=== PATIENT | male | born 1965 | race Caucasian/White ===

== ENCOUNTER 2022-03-21 10:50 | Outpatient (CLI) | payer BC, SELFPAY ==
--- NOTE | ~2022-03-21 | US_ITS ---
EXAMINATION: US carotid duplex BI DATE: 03/21/2022 11:40 INDICATION: Other specified symptoms and signs involving the circulatory system. TECHNIQUE: Grayscale, color Doppler, and pulsed Doppler images of the cervical carotid arteries were obtained. The degree of vessel stenosis is placed in one of the following categories: normal, <50%, 5 0-69%, >=70% but less than near-occlusion, near-occlusion, or total occlusion. Note that percent sten osis relative to normal distal artery lumen diameter is indirectly measured from velocity measurement s as described by Myke, et al. Radiology 2003; [id number]. COMPARISON: None. FINDINGS: RIGHT: The right common carotid artery (CCA) peak systolic velocity (PSV) is 111 cm/s. The right internal ca rotid artery (ICA) PSV is 85 cm/s. The right ICA end-diastolic velocity (EDV) is 23 cm/s. The right I CA/CCA PSV ratio is 0.8. Grayscale and color Doppler images yield an estimate of <50% diameter reduct ion from plaque in the ICA. There is antegrade flow in the right vertebral artery. LEFT: The left CCA PSV is 157 cm/s. The left ICA PSV is 85 cm/s. The left ICA EDV is 19 cm/s. The left ICA/ CCA PSV ratio is 0.5. Grayscale and color Doppler images yield an estimate of <50% diameter reduction from plaque in the ICA. There is antegrade flow in the left vertebral artery. IMPRESSION: 1. <50% stenosis in the right internal carotid artery. 2. <50% stenosis in the left internal carotid artery. Reviewed, dictated and finalized at location A.
--- NOTE | ~2022-03-21 | XR_ITS ---
EXAMINATION: XR chest 2V 03/21/2022 11:15 INDICATION: Hypertension. PROCEDURE: 2 view chest COMPARISON: 06/25/2006 FINDINGS: The lungs are clear. The cardiomediastinal silhouette is within normal limits. There are no pleural effusions. There is no pneumothorax suspected. IMPRESSION: 1: NO ACUTE CARDIOPULMONARY DISEASE. Reviewed, dictated and finalized at location A.
== END 2022-03-21 10:51 | disposition home or self-care (01) ==
PROVIDERS: PCP Family Medicine; Visit Provider Family Medicine
DX: R09.89 Other specified symptoms and signs involving the circulatory and respiratory systems (principal); I65.23 Occlusion and stenosis of bilateral carotid arteries
CPT/HCPCS: 71046; 93880

== ENCOUNTER 2024-04-25 13:41 | Outpatient (CLI) | payer BC, OTHER, SELFPAY ==
--- NOTE | ~2024-04-25 | XR_ITS ---
XR chest 2V Ordering provider: Etienne Ordoñez MD History: 59 years Male with . J40 - Bronchitis, not specified as acute or chronic, SMOKER . Comparison: None. FINDINGS: MEDIASTINUM: The cardiac silhouette is not enlarged. LUNGS: No infiltrates, effusions or pneumothorax. Emphysematous changes of the lungs. OTHER: No free air under the diaphragm. IMPRESSION: No acute cardiopulmonary pathology Reviewed, dictated and finalized at location A.
--- NOTE | 2024-04-25 14:09 | ECG_ITS ---
Test Date: 2024-04-25 14:23:01 Measurements Intervals [place] Rate: P: MD: QRS: QRSD: T: QT: QTc: Interpretive Statements SINUS RHYTHM WITH FIRST DEGREE AV BLOCK BORDERLINE ECG Electronically Signed On 04-25-2024 14:53:01 CDT by Bautista Barcenas D.O.
[2024-04-25 14:26] LABS: Basophils Absolute Auto 0.1 K/mm3 (0.0-0.1); Basophils Percent Auto 0.6 % (0.2-1.2); Eosinophils Absolute Auto 0.2 K/mm3 (0-0.3); Eosinophils Percent Auto 2.2 % (0-4.4); Hematocrit 41.1 % (42.0-52.0); Hemoglobin 14.8 g/dL (14.0-18.0); Immature Granulocyte Absolute 0.03 K/mm3 (0.00-0.031); Immature Granulocyte Percent A 0.4 % (0-0.5); Lymphocytes Absolute Auto 1.64 K/mm3 (0.9-3.2); Mean Corpuscular Volume 91.5 fl (80-100); Mean Platelet Volume 10.1 fl (7.4-10.4); Monocytes Absolute Auto 0.9 K/mm3 (0.1-0.6); Monocytes Percent Auto 11.2 % (2.6-8.5); Neutrophils Absolute Auto 5.4 K/mm3 (1.3-6.7); Neutrophils Percent Auto 65.6 % (45.5-73.1); Platelet Count Result 194 k/mm3 (150-375); Red Blood Count 4.49 M/mm3 (4.6-6.20); Red Cell Distribution Width 11.2 % (11.5-14.5); White Blood Count 8.2 K/mm3 (4.5-10.0)
[2024-04-25 14:57] LABS: Anion Gap 9 mmol/L (4-12); Blood Urea Nitrogen 10 mg/dL (9-20); Calcium 9.2 mg/dL (8.4-10.2); Carbon Dioxide 28 mmol/L (22-30); Chloride 83 mmol/L (98-107); Estimated Glomerular Filt Rate > 60; Glucose 98 mg/dL (65-110); Potassium 3.5 mmol/L (3.4-5.0); Sodium 120 mmol/L (137-145)
== END 2024-04-25 13:42 | disposition home or self-care (01) ==
PROVIDERS: PCP Family Medicine; Visit Provider Family Medicine
DX: J40 Bronchitis, not specified as acute or chronic (principal); R06.2 Wheezing; R06.00 Dyspnea, unspecified; I10 Essential (primary) hypertension; I44.0 Atrioventricular block, first degree
CPT/HCPCS: 36415; 71046; 80048; 85025; 93005

== ENCOUNTER 2024-04-25 15:07 | Inpatient (IN) | payer BC, OTHER, SELFPAY ==
[2024-04-25] VITALS (10 sets, daily range): BP systolic 118–136; BP diastolic 68–101; PULSE 64–88; RESP 14–20; TEMP 36.4–37.1; O2SAT 92–97; BMI 31.9
--- NOTE | 2024-04-25 15:13 | ED.RECABL ---
HPI - Recheck/Abnormal Lab/Rx General Chief Complaint: Recheck/Abnormal Lab/Rx <Litzy Wu PA-C - Last Filed: 04/25/24 19:18> Stated Complaint: LOW SODIUM LEVEL <Litzy Wu PA-C - Last Filed: 04/25/24 19:18> Time Seen by Provider: 04/25/24 15:13 <Litzy Wu PA-C - Last Filed: 04/25/24 19:18> Focused HPI: This is a 59-year-old male that presents to the emergency department for abnormal outpatient blood work. He had a low sodium. Patient does report he is a daily drinker. No previous history of hyponatremia that he knows of. GENERAL: Well-appearing, well-nourished, and in no acute distress. HEAD: Normocephalic, atraumatic. CHEST: Clear to auscultation. ?No respiratory distress. HEART: Regular rate and rhythm.? NEURO: ?Alert and oriented x3. Patient screened in triage and initial orders placed.? ?Additional care and disposition to be based upon?diagnostic testing and treatment. <Litzy Wu PA-C - Last Filed: 04/25/24 19:18> History of Present Illness HPI narrative: Patient is 59-year-old gentleman presents emergency department with chief complaint of hyponatremia. Patient was being seen by his primary care provider for possible bronchitis and also reports that he has not been feeling well patient does report that he drinks about a pt to a 5th a day of alcohol the patient states that patient had outpatient labs which showed that his sodium was 120. <Darion Holt MD - Last Filed: 04/25/24 16:16> Related Data Allergies/Adverse Reactions: Allergies Allergy/AdvReac Type Severity Reaction Status Date / Time No Known Allergies Allergy Verified 04/25/24 12:38 <Litzy Wu PA-C - Last Filed: 04/25/24 19:18> Review of Systems Review of Systems: A 10 system review of systems was completed on the patient and is negative except for what is stated in the HPI. Nursing and ancillary documentation was reviewed. <Darion Holt MD - Last Filed: 04/25/24 16:16> PMFSH Past Medical History Medical History: Medical History Abnormal lung sounds Bilateral impacted cerumen Bronchitis Class 1 obesity with body mass index (BMI) of 33.0 to 33.9 in adult Dyspnea Hyponatremia Right carotid bruit Screening for lipoid disorders Screening for prostate cancer Tobacco abuse Wheezing <Litzy Wu PA-C - Last Filed: 04/25/24 19:18> Family History Family History: Family History Mother Hypertension Cerebrovascular accident Family history of coronary artery disease Family history of throat cancer Grandparent Cerebrovascular accident Father Family history of primary malignant neoplasm of liver Sibling Family history of malignant neoplasm of brain Cancer Cerebrovascular accident Sibling No problems noted. <Litzy Wu PA-C - Last Filed: 04/25/24 19:18> Social History Social History: Social History Smoking packs per day: 1 Smoking cigarettes per day: 20.0 Years smoked: 40 Smoking pack-years: 40.00 Smoking status: Current every day smoker Tobacco type: cigarettes Second hand tobacco smoke exposure: Yes Additional smoking assessment comments: Patient states he has cut back to half a pack a day. Alcohol intake: current Drinks per week: 20 Substance use: never Substance use type: does not use Do You Feel Safe in your Home?: Yes Lack of Transportation: No Lack of Food: Never True Current Housing: I Have Housing Concerned About Future Housing: No Difficulty Paying Gas/Electric Bills: No Difficulty Paying for Meds: No Currently Unemployed: No Education: High School Diploma/GED Difficulty w/ Childcare or Family Care: No Living arrangements: with family Occu
[2024-04-25 16:15] LABS: Basophils Percent Auto 0.6 % (0.2-1.2); Eosinophils Absolute Auto 0.1 K/mm3 (0-0.3); Eosinophils Percent Auto 1.5 % (0-4.4); Hematocrit 42.2 % (42.0-52.0); Hemoglobin 15.8 g/dL (14.0-18.0); Immature Granulocyte Absolute 0.03 K/mm3 (0.00-0.031); Immature Granulocyte Percent A 0.4 % (0-0.5); Lymphocytes Absolute Auto 0.84 K/mm3 (0.9-3.2); Lymphocytes Percent Auto 11.8 % (18.3-44.2); Mean Corpuscular HGB Conc 37.4 g/dl (32-36); Mean Corpuscular Hemoglobin 33.8 pg (26-34); Mean Corpuscular Volume 90.4 fl (80-100); Mean Platelet Volume 9.5 fl (7.4-10.4); Monocytes Absolute Auto 0.4 K/mm3 (0.1-0.6); Monocytes Percent Auto 5.8 % (2.6-8.5); Neutrophils Absolute Auto 5.7 K/mm3 (1.3-6.7); Neutrophils Percent Auto 79.9 % (45.5-73.1); Platelet Count Result 176 k/mm3 (150-375); Red Blood Count 4.67 M/mm3 (4.6-6.20); Red Cell Distribution Width 11.3 % (11.5-14.5); White Blood Count 7.1 K/mm3 (4.5-10.0)
[2024-04-25] MEDS: SODIUM CHLORIDE 0.9% IV 1,000 ML 999 ML IV CONT (16:19)
[2024-04-25 16:27] LABS: Lactic Acid Reflex 0.8 mmol/L (0.7-2.0)
[2024-04-25 16:30] LABS: Alanine Aminotransferase 92 U/L (6-50); Albumin Level 4.6 g/dL (3.5-5.1); Alkaline Phosphatase 59 U/L (38-126); Anion Gap 9 mmol/L (4-12); Aspartate Amino Transferase 58 U/L (17-59); Bilirubin,Total 0.9 mg/dL (0.2-1.3); Blood Urea Nitrogen 10 mg/dL (9-20); Calcium 9.2 mg/dL (8.4-10.2); Carbon Dioxide 26 mmol/L (22-30); Chloride 81 mmol/L (98-107); Estimated CRCL calculation 169 ml/min; Estimated Glomerular Filt Rate > 60; Glucose 103 mg/dL (65-110); Magnesium 1.7 mg/dL (1.6-2.3); Potassium 3.6 mmol/L (3.4-5.0); Sodium 116 mmol/L (137-145)
[2024-04-25 16:39] LABS: NT Pro B Type Natriuretic Pept 135 pg/mL (19.9-100); Troponin I < 0.012 ng/mL (0.000-0.034)
[2024-04-25 16:43] LABS: Influenza A QL RT-PCR Negative (Negative); Influenza B QL RT-PCR Negative (Negative); RSV RNA, RT-PCR Negative (Negative); SARS-CoV-2 RNA PCR Negative (Negative)
[2024-04-25 16:59] LABS: Procalcitonin 0.1 ng/mL
[2024-04-25] MEDS: THIAMINE 500 MG/NS 100 ML 500 MG/100 ML BAG 200 MG IVPB (17:03)
[2024-04-25 17:27] LABS: Add Urine Microscopic? NO; Appearance Urine Clear (Clear); Bilirubin Urine Negative (Negative); Blood Urine Negative (Negative); Color Urine Yellow (Yellow); Glucose Urine UA Negative (Negative); Ketones Urine Negative (Negative); Leukocyte Esterase Ur Negative LEU/UL (Negative); Nitrate Urine Negative (Negative); Protein Urine Negative (Negative); Specific Grav Ur 1.008 (1.001-1.035)
--- NOTE | 2024-04-25 17:30 | PM.IMHP ---
H&P: HPI History of Present Illness Date/Time: 04/25/24 17:30 Chief Complaint: Low sodium. Narrative: This is a 59-year-old male smoker with hypertension, hyperlipidemia, and alcohol abuse who presented to the emergency department from Dr. Ordoñez's office for evaluation after he was found to have a sodium of 120. The patient provides the following history. He has not been feeling well for over a week with symptoms to include fatigue, generalized weakness, sinus congestion, and increasing shortness of breath with exertion. He took an at home COVID test on Thursday which was negative. He had a scheduled, routine appointment Dr. Ordoñez today who ordered a chest x-ray and some labs given his symptoms. To the patient's knowledge, he has never had low sodium. He has been on hydrochlorothiazide for quite some time. He says he has been eating and drinking okay but then he goes on to say that he feels parched and he has noticed a slight decrease in urine output. He denies fever, confusion, nausea, vomiting, diarrhea, and swelling. He drinks about 1.5 pt of alcohol a day after he gets off of work. He has never had signs or symptoms of alcohol withdrawal. In the ED: He was afebrile on arrival with stable vital signs. Labs are significant for a sodium of 120, chloride 83, BUN 10, creatinine 0.50, ALT 92, proBNP 135. Urinalysis was unremarkable. He tested negative for influenza, RSV, and COVID. Outpatient chest x-ray showed no acute cardiopulmonary disease. He was given a L of normal saline and is being admitted in this setting for further treatment and evaluation. Review of Systems Review of Systems: 12 systems were reviewed and are negative except for as per HPI. [facility] Past Medical History Medical History (Updated 04/25/24 @ 21:41 by Michelle Nguyen PA-C) Alcohol abuse Hyperlipidemia Hypertension Right carotid bruit Less than 50% stenosis in bilateral internal carotid arteries on Doppler taken 03/21/2022. Tobacco abuse Surgical History Surgical History History of appendectomy Family History Family History Mother Hypertension Cerebrovascular accident Family history of coronary artery disease Family history of throat cancer Grandparent Cerebrovascular accident Father Family history of primary malignant neoplasm of liver Sibling Family history of malignant neoplasm of brain Cancer Cerebrovascular accident Sibling No problems noted. Social History Social History (Updated 04/25/24 @ 21:42 by Michelle Nguyen PA-C) Social History: Surrogate medical decision maker: Maribell Mendez, spouse. Code status: Full code. Smoking packs per day: 1 Smoking cigarettes per day: 20.0 Years smoked: 40 Smoking pack-years: 40.00 Smoking status: Current every day smoker Tobacco type: cigarettes Second hand tobacco smoke exposure: Yes Additional smoking assessment comments: Patient states he has cut back to half a pack a day. Alcohol intake: current Drinks per week: 21 Alcohol use details: 1.5 pt of alcohol a day Substance use: never Substance use type: does not use Do You Feel Safe in your Home?: Yes Lack of Transportation: No Lack of Food: Never True Current Housing: I Have Housing Concerned About Future Housing: No Difficulty Paying Gas/Electric Bills: No Difficulty Paying for Meds: No Currently Unemployed: No Education: Bachelor's Degree Difficulty w/ Childcare or Family Care: No Living arrangements: with family Additional living arrangements comments: Lives with and son in [place]. 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
[2024-04-25 17:41] LABS: Creatinine Urine 40.1 mg/dL; Urea Random Urine 372 MG/DL
[2024-04-25 17:42] LABS: Sodium Urine Random 67 meq/L
--- NOTE | 2024-04-25 18:47 | ADMGEN ---
This patient, Mike Mendez, was admitted to IMU Room 232-01. Patient/family oriented to hospital policies and general routines including ID bracelet, bed and alarms, visiting hours, pain management, procedures, bathroom and other care routines, personal items, smoking policy, room service/diet, and visiting hours. Information on how to activate the Rapid Response Team has been discussed. Patient/Family are encouraged to report perceived risks to care and to ask questions if they do not understand what they are told or what they should do.
[2024-04-25 20:56] LABS: Sodium 122 mmol/L (137-145)
[2024-04-25] MEDS: SODIUM CHLORIDE 0.9% IV 500 ML 100 ML IV CONT (22:22)
[2024-04-25] MEDS: carvediloL 25 MG TABLET BY MOUTH (22:22)
[2024-04-25] MEDS: cloNIDine HCL 0.1 MG TABLET BY MOUTH (22:22)
[2024-04-26] VITALS (24 sets, daily range): BP systolic 113–129; BP diastolic 54–74; PULSE 63–82; RESP 16–22; TEMP 36.3–36.6; O2SAT 91–98
[2024-04-26 00:39] LABS: Sodium 122 mmol/L (137-145)
[2024-04-26] MEDS: IPRATROPIUM 0.5 MG/ALBUTEROL SULFATE 2.5 MG AMPUL.NEB 3 ML INHALATION ×4 (03:06→20:02)
[2024-04-26 04:57] LABS: Hematocrit 42.3 % (42.0-52.0); Hemoglobin 15.5 g/dL (14.0-18.0); Mean Corpuscular HGB Conc 36.6 g/dl (32-36); Mean Corpuscular Hemoglobin 33.5 pg (26-34); Mean Corpuscular Volume 91.6 fl (80-100); Mean Platelet Volume 10.1 fl (7.4-10.4); Platelet Count Result 186 k/mm3 (150-375); Red Blood Count 4.62 M/mm3 (4.6-6.20); Red Cell Distribution Width 11.3 % (11.5-14.5); White Blood Count 8.6 K/mm3 (4.5-10.0)
[2024-04-26 05:10] LABS: Sodium 123 mmol/L (137-145)
[2024-04-26 05:15] LABS: Anion Gap 10 mmol/L (4-12); Blood Urea Nitrogen 6 mg/dL (9-20); Calcium 9.1 mg/dL (8.4-10.2); Carbon Dioxide 23 mmol/L (22-30); Chloride 89 mmol/L (98-107); Estimated CRCL calculation 201 ml/min; Estimated Glomerular Filt Rate > 60; Glucose 117 mg/dL (65-110); Magnesium 1.8 mg/dL (1.6-2.3); Potassium 3.7 mmol/L (3.4-5.0); Sodium 122 mmol/L (137-145)
[2024-04-26] MEDS: FLUTICASONE/UMECLIDIN/VILANTER 100-62.5-25 MCG ELLIPTA 1 PUFF INHALATION (08:13)
[2024-04-26] MEDS: carvediloL 25 MG TABLET BY MOUTH ×2 (08:48→20:40)
[2024-04-26] MEDS: FOLIC ACID 1 MG TABLET PO (08:50)
[2024-04-26] MEDS: predniSONE 20 MG TABLET PO (08:50)
[2024-04-26] MEDS: amLODIPine BESYLATE 5 MG TABLET 10 MG BY MOUTH (08:50)
[2024-04-26] MEDS: THIAMINE HCL 100 MG TABLET PO (08:51)
[2024-04-26] MEDS: IRBESARTAN 150 MG TABLET 300 MG BY MOUTH (08:55)
[2024-04-26] MEDS: ROSUVASTATIN 20 MG TABLET BY MOUTH (08:55)
[2024-04-26] MEDS: cloNIDine HCL 0.1 MG TABLET BY MOUTH ×2 (08:56→20:40)
[2024-04-26] MEDS: CEFDINIR 300 MG CAPSULE PO ×2 (08:56→20:40)
[2024-04-26 09:58] LABS: Sodium 124 mmol/L (137-145)
[2024-04-26 13:34] LABS: Sodium 122 mmol/L (137-145)
--- NOTE | 2024-04-26 14:57 | PM.IMPN ---
Progress Note: A&P Assessment and Plan (1) Hyponatremia: Code(s): E87.1 - Hypo-osmolality and hyponatremia Status: Acute (2) Bronchitis: Code(s): J40 - Bronchitis, not specified as acute or chronic Status: Acute (3) Alcohol abuse: Code(s): F10.10 - Alcohol abuse, uncomplicated Status: Acute (4) Hypertension: Code(s): I10 - Essential (primary) hypertension Status: Acute (5) Tobacco abuse: Code(s): Z72.0 - Tobacco use Status: Acute Plan The patient presented to the emergency department for evaluation after he was found to have a sodium level of 120 as detailed in HPI. Labs, imaging, EKG, and all reports were personally reviewed. He has not been feeling well for about a week and his physical exam findings and history are consistent with a probable viral bronchitis. He has been started on a short course of prednisone and scheduled bronchodilators. Continue cefdinir prescribed as an outpatient. Regarding the sodium, it sounds as though this may have occurred over the course of the last week. He has several risk factors for hyponatremia as he is on hydrochlorothiazide and probably has underlying COPD in addition to daily alcohol consumption. He does indeed look dry on exam and has been started on normal saline. Sodium levels will be monitored frequently to ensure that they are correcting appropriately. Urine and serum osmolalities, urine sodium and urea, and TSH have been ordered. Blood pressures were reviewed and they are stable. He declines the need for a nicotine patch. Initiate CIWA protocol. His medications will be reviewed and resumed as appropriate. Hyponatremia 2/2 Thiazide vs alcoholism -Na 116 at 3pm on 04/25 and started on NS @ 100ml/hr -Na 124 on 04/26 ,IVF on hold, repeat Na 122 at 3 pm . Restarted NS @100 ml /hr -Do not correct Na more than 6-8 in 24 hours. -Na check every 4 hours and hold fluids accordingly. Initiate D5w if autocorrection happens Subjective Date/time seen: 04/26/24 14:57 Interval history: Patient was admitted due to hypernatremia. Today the sodium was 124 at around 9:00 a.m. and currently it is 122 on 1pm. We will again restart the normal saline at 100 mL per hr and continue monitoring the sodium every 4 hours. The goal is to correct a 6-8 in 24 hours. His sodium during the admission is around 116 on 04/25 around 3:00 p.m. and IV fluids was started but was on hold due to his sodium correction was 124 this morning. Patient is a chronic alcoholic. Denies any withdrawal symptoms. Review of Systems Review of Systems: 12 systems were reviewed and are negative except for as per HPI. Exam Narrative: General: Mildly ill-appearing male sitting up in bed. Weight: 106.9 kg. BMI: 32.0. HEENT: PERRL, EOMI. Sclera anicteric. Tacky mucous membranes. Neck: Supple. Respiratory: Respirations are nonlabored. Lung sounds are diminished with end-expiratory wheezing. Cardiovascular: Regular rate and rhythm with S1-S2. Gastrointestinal: Abdomen is soft, nontender, and nondistended with positive bowel sounds. Skin: Warm and dry. No rash or lesions on limited exam. Extremities: No cyanosis, clubbing, or edema. Radial and pedal pulses intact. Neurological: Alert. Cranial nerves 2-12 are grossly intact. No gross focal deficits to casual conversation. Psychiatric: Pleasant and cooperative with normal mood and affect. Judgment and insight intact. Objective Data Vital Signs Vital Signs: Vital Signs - 24 hr 04/25/24 15:12 04/25/24 15:32 04/25/24 17:01 Temperature 97.8 F Pulse Rate 64 70 Pulse Rate [Monitor] Respiratory Rate 18 14 17 Blood Pressure 121/68 118/101 H Pulse Oximetry 95 95 Oxygen Delivery Room Air Fraction of Inspired Oxygen 04/25/24 18:54 04/25/24 19:46 04/25/24 19:46 Temperature 98.6 F Pulse Rate 76 81 84 Pulse Rate [Monitor] Respiratory Rate 18 20 Blood Pressure 136/89 Pulse Oximetry 97 9
[2024-04-26] MEDS: SODIUM CHLORIDE 0.9% IV 1,000 ML 100 ML IV CONT (15:41)
[2024-04-26 17:26] LABS: Sodium 122 mmol/L (137-145)
[2024-04-26 20:16] LABS: Sodium 125 mmol/L (137-145)
[2024-04-27] VITALS (25 sets, daily range): BP systolic 113–153; BP diastolic 54–76; PULSE 58–74; RESP 16–20; TEMP 36.1–36.6; O2SAT 92–98
[2024-04-27] MEDS: SODIUM CHLORIDE 0.9% IV 1,000 ML 100 ML IV CONT ×3 (01:23→20:37)
[2024-04-27] MEDS: IPRATROPIUM 0.5 MG/ALBUTEROL SULFATE 2.5 MG AMPUL.NEB 3 ML INHALATION ×4 (02:36→20:56)
[2024-04-27 04:41] LABS: Hematocrit 42.6 % (42.0-52.0); Hemoglobin 15.5 g/dL (14.0-18.0); Mean Corpuscular HGB Conc 36.4 g/dl (32-36); Mean Corpuscular Hemoglobin 33.5 pg (26-34); Mean Platelet Volume 9.3 fl (7.4-10.4); Platelet Count Result 190 k/mm3 (150-375); Red Blood Count 4.63 M/mm3 (4.6-6.20); Red Cell Distribution Width 11.8 % (11.5-14.5); White Blood Count 10.8 K/mm3 (4.5-10.0)
[2024-04-27 04:56] LABS: Alanine Aminotransferase 115 U/L (6-50); Albumin Level 4.3 g/dL (3.5-5.1); Alkaline Phosphatase 48 U/L (38-126); Anion Gap 9 mmol/L (4-12); Aspartate Amino Transferase 79 U/L (17-59); Bilirubin,Total 0.7 mg/dL (0.2-1.3); Blood Urea Nitrogen 8 mg/dL (9-20); Carbon Dioxide 25 mmol/L (22-30); Chloride 93 mmol/L (98-107); Estimated CRCL calculation 201 ml/min; Estimated Glomerular Filt Rate > 60; Glucose 98 mg/dL (65-110); Potassium 3.6 mmol/L (3.4-5.0); Sodium 127 mmol/L (137-145)
[2024-04-27] MEDS: FOLIC ACID 1 MG TABLET PO (08:21)
[2024-04-27] MEDS: IRBESARTAN 150 MG TABLET 300 MG BY MOUTH (08:21)
[2024-04-27] MEDS: amLODIPine BESYLATE 5 MG TABLET 10 MG BY MOUTH (08:21)
[2024-04-27] MEDS: ROSUVASTATIN 20 MG TABLET BY MOUTH (08:21)
[2024-04-27] MEDS: carvediloL 25 MG TABLET BY MOUTH ×2 (08:21→20:32)
[2024-04-27] MEDS: predniSONE 20 MG TABLET PO (08:21)
[2024-04-27] MEDS: THIAMINE HCL 100 MG TABLET PO (08:21)
[2024-04-27] MEDS: cloNIDine HCL 0.1 MG TABLET BY MOUTH ×2 (08:21→20:32)
[2024-04-27] MEDS: CEFDINIR 300 MG CAPSULE PO ×2 (08:21→20:32)
[2024-04-27] MEDS: FLUTICASONE/UMECLIDIN/VILANTER 100-62.5-25 MCG ELLIPTA 1 PUFF INHALATION (08:55)
[2024-04-27 12:48] LABS: Osmolality, Urine 300 mOsm/kg (50-1200)
[2024-04-27 14:27] LABS: Sodium 127 mmol/L (137-145)
--- NOTE | 2024-04-27 17:53 | PM.IMPN ---
Progress Note: A&P Assessment and Plan (1) Hyponatremia: Code(s): E87.1 - Hypo-osmolality and hyponatremia Status: Acute (2) Bronchitis: Code(s): J40 - Bronchitis, not specified as acute or chronic Status: Acute (3) Alcohol abuse: Code(s): F10.10 - Alcohol abuse, uncomplicated Status: Acute (4) Hypertension: Code(s): I10 - Essential (primary) hypertension Status: Acute (5) Tobacco abuse: Code(s): Z72.0 - Tobacco use Status: Acute Plan The patient presented to the emergency department for evaluation after he was found to have a sodium level of 120 as detailed in HPI. Labs, imaging, EKG, and all reports were personally reviewed. He has not been feeling well for about a week and his physical exam findings and history are consistent with a probable viral bronchitis. He has been started on a short course of prednisone and scheduled bronchodilators. Continue cefdinir prescribed as an outpatient. Regarding the sodium, it sounds as though this may have occurred over the course of the last week. He has several risk factors for hyponatremia as he is on hydrochlorothiazide and probably has underlying COPD in addition to daily alcohol consumption. He does indeed look dry on exam and has been started on normal saline. Sodium levels will be monitored frequently to ensure that they are correcting appropriately. Urine and serum osmolalities, urine sodium and urea, and TSH have been ordered. Blood pressures were reviewed and they are stable. He declines the need for a nicotine patch. Initiate CIWA protocol. His medications will be reviewed and resumed as appropriate. Hyponatremia 2/2 Thiazide vs alcoholism -Na 116 at 3pm on 04/25 and started on NS @ 100ml/hr -Na 124 on 04/26 ,IVF on hold, repeat Na 122 at 3 pm . Restarted NS @100 ml /hr -Na 127 on 04/27. On target. Cont NS @ 100ml/hr -Do not correct Na more than 6-8 in 24 hours. -Na check every 4 hours and hold fluids accordingly. Initiate D5w if autocorrection or hyperNa happens Subjective Date/time seen: 04/27/24 17:53 Interval history: Patient is currently doing well. Sodium continues to improve. Likely to be discharged tomorrow Review of Systems Review of Systems: 12 systems were reviewed and are negative except for as per HPI. Exam Narrative: General: Mildly ill-appearing male sitting up in bed. Weight: 106.9 kg. BMI: 32.0. HEENT: PERRL, EOMI. Sclera anicteric. Tacky mucous membranes. Neck: Supple. Respiratory: Respirations are nonlabored. Lung sounds are diminished with end-expiratory wheezing. Cardiovascular: Regular rate and rhythm with S1-S2. Gastrointestinal: Abdomen is soft, nontender, and nondistended with positive bowel sounds. Skin: Warm and dry. No rash or lesions on limited exam. Extremities: No cyanosis, clubbing, or edema. Radial and pedal pulses intact. Neurological: Alert. Cranial nerves 2-12 are grossly intact. No gross focal deficits to casual conversation. Psychiatric: Pleasant and cooperative with normal mood and affect. Judgment and insight intact. Objective Data Vital Signs Vital Signs: Vital Signs - 24 hr 04/26/24 18:00 04/26/24 20:02 04/26/24 20:02 Temperature Pulse Rate 63 70 Pulse Rate [Monitor] Respiratory Rate 16 Blood Pressure Pulse Oximetry 91 Oxygen Delivery Room Air Fraction of Inspired Oxygen 04/26/24 20:22 04/26/24 20:40 04/26/24 20:00 Temperature 97.8 F Pulse Rate 72 82 72 Pulse Rate [Monitor] Respiratory Rate Blood Pressure 126/54 L Pulse Oximetry 96 Oxygen Delivery Fraction of Inspired Oxygen 04/26/24 20:00 04/26/24 20:00 04/26/24 21:50 Temperature Pulse Rate 72 66 Pulse Rate [Monitor] 72 Respiratory Rate 16 Blood Pressure 126/54 L Pulse Oximetry 96 Oxygen Delivery Room Air Fraction of Inspired Oxygen 21 04/27/24 00:15 04/27/24 00:00 04/27/24 00:00 Temperature 97.0 F L Puls
[2024-04-27 23:19] LABS: Sodium 126 mmol/L (137-145)
[2024-04-28] MEDS: IPRATROPIUM 0.5 MG/ALBUTEROL SULFATE 2.5 MG AMPUL.NEB 3 ML INHALATION ×2 (02:46→07:00)
[2024-04-28 02:48] VITALS: PULSE 68; RESP 18
[2024-04-28 02:56] VITALS: PULSE 70; RESP 18
[2024-04-28 04:00] VITALS: BP 146/65; PULSE 64
[2024-04-28 05:06] LABS: Hematocrit 42.6 % (42.0-52.0); Hemoglobin 15.2 g/dL (14.0-18.0); Mean Corpuscular HGB Conc 35.7 g/dl (32-36); Mean Corpuscular Hemoglobin 33.4 pg (26-34); Mean Corpuscular Volume 93.6 fl (80-100); Mean Platelet Volume 9.9 fl (7.4-10.4); Platelet Count Result 206 k/mm3 (150-375); Red Blood Count 4.55 M/mm3 (4.6-6.20); Red Cell Distribution Width 11.8 % (11.5-14.5); White Blood Count 10.6 K/mm3 (4.5-10.0)
[2024-04-28 05:22] LABS: Alanine Aminotransferase 166 U/L (6-50); Albumin Level 4.2 g/dL (3.5-5.1); Alkaline Phosphatase 49 U/L (38-126); Anion Gap 9 mmol/L (4-12); Aspartate Amino Transferase 92 U/L (17-59); Bilirubin,Total 0.6 mg/dL (0.2-1.3); Blood Urea Nitrogen 9 mg/dL (9-20); Calcium 8.7 mg/dL (8.4-10.2); Carbon Dioxide 26 mmol/L (22-30); Chloride 91 mmol/L (98-107); Estimated CRCL calculation 202 ml/min; Estimated Glomerular Filt Rate > 60; Glucose 87 mg/dL (65-110); Potassium 3.5 mmol/L (3.4-5.0); Sodium 126 mmol/L (137-145)
[2024-04-28] MEDS: SODIUM CHLORIDE 0.9% IV 1,000 ML 100 ML IV CONT (05:26)
[2024-04-28 07:00] VITALS: PULSE 81; RESP 18; O2SAT 93
[2024-04-28] MEDS: FLUTICASONE/UMECLIDIN/VILANTER 100-62.5-25 MCG ELLIPTA 1 PUFF INHALATION (07:01)
[2024-04-28 07:10] VITALS: PULSE 76; RESP 18
[2024-04-28 08:00] VITALS: BP 134/72; PULSE 67; PULSE 74; RESP 18; TEMP 36.4; O2SAT 96
[2024-04-28] MEDS: carvediloL 25 MG TABLET BY MOUTH (08:23)
[2024-04-28] MEDS: IRBESARTAN 150 MG TABLET 300 MG BY MOUTH (08:23)
[2024-04-28] MEDS: SODIUM CHLORIDE 1 GM TABLET PO (08:23)
[2024-04-28] MEDS: cloNIDine HCL 0.1 MG TABLET BY MOUTH (08:23)
[2024-04-28] MEDS: ROSUVASTATIN 20 MG TABLET BY MOUTH (08:23)
[2024-04-28] MEDS: CEFDINIR 300 MG CAPSULE PO (08:23)
[2024-04-28] MEDS: THIAMINE HCL 100 MG TABLET PO (08:23)
[2024-04-28] MEDS: FOLIC ACID 1 MG TABLET PO (08:23)
[2024-04-28] MEDS: amLODIPine BESYLATE 5 MG TABLET 10 MG BY MOUTH (08:23)
[2024-04-28] MEDS: predniSONE 20 MG TABLET PO (08:23)
--- NOTE | 2024-04-28 09:40 | PM.DS ---
DS: Admitting Diagnosis Discharge Date 04/28/2024 Admitting Diagnosis Hyponatremia DS: Discharge Diagnosis Discharge Diagnosis (1) Hyponatremia: Code(s): E87.1 - Hypo-osmolality and hyponatremia Status: Acute (2) Bronchitis: Code(s): J40 - Bronchitis, not specified as acute or chronic Status: Acute (3) Alcohol abuse: Code(s): F10.10 - Alcohol abuse, uncomplicated Status: Acute (4) Hypertension: Code(s): I10 - Essential (primary) hypertension Status: Acute (5) Tobacco abuse: Code(s): Z72.0 - Tobacco use Status: Acute Plan The patient presented to the emergency department for evaluation after he was found to have a sodium level of 120 as detailed in HPI. Labs, imaging, EKG, and all reports were personally reviewed. He has not been feeling well for about a week and his physical exam findings and history are consistent with a probable viral bronchitis. He has been started on a short course of prednisone and scheduled bronchodilators. Continue cefdinir prescribed as an outpatient. Regarding the sodium, it sounds as though this may have occurred over the course of the last week. He has several risk factors for hyponatremia as he is on hydrochlorothiazide and probably has underlying COPD in addition to daily alcohol consumption. He does indeed look dry on exam and has been started on normal saline. Sodium levels will be monitored frequently to ensure that they are correcting appropriately. Urine and serum osmolalities, urine sodium and urea, and TSH have been ordered. Blood pressures were reviewed and they are stable. He declines the need for a nicotine patch. Initiate CIWA protocol. His medications will be reviewed and resumed as appropriate. Hyponatremia 2/2 Thiazide vs alcoholism -Na 116 at 3pm on 04/25 and started on NS @ 100ml/hr -Na 124 on 04/26 ,IVF on hold, repeat Na 122 at 3 pm . Restarted NS @100 ml /hr -Na 127 on 04/27. On target. Cont NS @ 100ml/hr -Do not correct Na more than 6-8 in 24 hours. -Na check every 4 hours and hold fluids accordingly. Initiate D5w if autocorrection or hyperNa happens 04/28/2024: Patient is currently doing well. Patient any headache nausea vomiting. Patient's sodium is currently on 126. Today patient is discharged with sodium 1 g tab. Patient hydrochlorothiazide medication has been stopped believing one of the possibility of his hypoNa. Patient needs to follow up with the PCP in regards to continuation of the sodium 1 g tab and reconsideration of his antihypertensive medication. We strongly advised the patient to follow up the labs particularly sodium in a week with his PCP and to continue monitor his blood pressure. DS: Summary Hospital Course Hospital Course: The patient presented to the emergency department for evaluation after he was found to have a sodium level of 120 as detailed in HPI. Labs, imaging, EKG, and all reports were personally reviewed. He has not been feeling well for about a week and his physical exam findings and history are consistent with a probable viral bronchitis. He has been started on a short course of prednisone and scheduled bronchodilators. Continue cefdinir prescribed as an outpatient. Regarding the sodium, it sounds as though this may have occurred over the course of the last week. He has several risk factors for hyponatremia as he is on hydrochlorothiazide and probably has underlying COPD in addition to daily alcohol consumption. He does indeed look dry on exam and has been started on normal saline. Sodium levels will be monitored frequently to ensure that they are correcting appropriately. Urine and serum osmolalities, urine sodium and urea, and TSH have been ordered. Blood pressures were reviewed and they are stable. He declines the need for a nicotine patch. Initiate CIWA protocol. His medications will be reviewed and resumed as appropriate. Hyponatremia 2/2 Thiazide vs alcoholism -Na 116 at 3pm on 04/25 and starte
== END 2024-04-28 10:37 | disposition home or self-care (01) | DRG 641 ==
LOC: ANHED 16:16 → ANHIMU 17:52
PROVIDERS: Physician Assistant; Admitting Provider General Practice; Emergency Provider Emergency Medicine; PCP Family Medicine; Visit Provider General Practice
DX: E87.1 Hypo-osmolality and hyponatremia (principal); J40 Bronchitis, not specified as acute or chronic; I10 Essential (primary) hypertension; F10.10 Alcohol abuse, uncomplicated; F17.210 Nicotine dependence, cigarettes, uncomplicated; Z20.822 Contact with and (suspected) exposure to COVID-19
CPT/HCPCS: 36415; 71046; 80048; 80053; 81003; 82570; 83605; 83735; 83880; 83930; 83935; 84145; 84295; 84300; 84484; 84540; 85025; 85027; 87637; 93005; 94640; 96360; 99285; A9270; J3411; J7030; J7040; J7512